=== PATIENT | male | born 1950 | race Caucasian/White ===

== ENCOUNTER 2018-08-16 15:23 | Emergency (ER) | payer MEDICARE ==
[~2018-08-16] VITALS: Ht 172.7 cm; Wt 77.1 kg
--- NOTE | 2018-08-16 15:45 | NUR ---
Dr. Cunningham at the bedside for MSE.
[2018-08-16] MEDS ORDERED: IBUPROFEN 600 MG TABLET ONE (15:57)
[2018-08-16] MEDS ORDERED: ACETAMINOPHEN ES 500 MG TABLET ONE (15:57)
[2018-08-16] MEDS ORDERED: ACETAMINOPHEN ES 500 MG TABLET PO ONE (16:00)
[2018-08-16] MEDS ORDERED: IBUPROFEN 600 MG TABLET PO ONE (16:00)
[2018-08-16 16:11] LABS: BASOPHILS # (AUTO) 0.1 K/uL (0.0-8.0); BASOPHILS % (AUTO) 1.7 % (0.0-2.0); EOSINOPHILS # (AUTO) 0.1 K/uL (0.0-0.7); EOSINOPHILS % (AUTO) 1.2 % (0.0-7.0); HEMATOCRIT 40.5 % (36.7-47.1); HEMOGLOBIN 12.9 g/dL (12.5-16.3); LYMPHOCYTES # (AUTO) 1.3 K/uL (20.0-40.0); LYMPHOCYTES % (AUTO) 17.1 % (20.5-51.5); MEAN CORPUSCULAR HEMOGLOBIN 27.1 uug (23.8-33.4); MEAN CORPUSCULAR HGB CONC 32 g/dL (32.5-36.3); MEAN CORPUSCULAR VOLUME 85.2 fL (73.0-96.2); MONOCYTES # (AUTO) 0.5 K/uL (2.0-10.0); MONOCYTES % (AUTO) 6.1 % (0.0-11.0); NEUTROPHILS # (AUTO) 5.6 K/uL (1.8-8.9); NEUTROPHILS % (AUTO) 73.9 % (38.5-71.5); PLATELET COUNT (AUTO) 238 K/uL (152-348); RED BLOOD CELL COUNT(AUTO) 4.76 MIL/uL (4.06-5.63); WHITE BLOOD COUNT (AUTO) 7.6 K/uL (3.6-10.2)
[2018-08-16 16:16] LABS: CREATININE 1.2 mg/dL (0.6-1.3); POTASSIUM 4.2 mmol/L (3.5-5.1)
[2018-08-16 16:25] LABS: BAND % (MANUAL) 3 % (0-10); EOSINOPHILS % (MANUAL) 1 % (0-8); LYMPHOCYTES % (MANUAL) 17 % (20-40); MONOCYTES % (MANUAL) 4 % (2-10); NEUTROPHILS % (MANUAL) 75 % (42-75)
[2018-08-16 16:31] LABS: *BILIRUBIN,URIN NEGATIVE (NEGATIVE); *BLOOD, URINE 2+ (NEGATIVE); *CLARITY,URINE CLEAR (CLEAR); *COLOR,URINE YELLOW (YELLOW); *KETONES,URINE NEGATIVE (NEGATIVE); *UROBILINOGEN,URINE 0.2 E.U./dl (NORMAL); LEUKOCYTE ESTERASE ,URINE NEGATIVE (NEGATIVE); NITRITE, URINE NEGATIVE (NEGATIVE); PH,URINE 8.5 (5.0-8.0); UGLUCOSE NEGATIVE (NEGATIVE)
[2018-08-16 16:31] LABS: BILIRUBIN,DIRECT 0.1 mg/dL (0.0-0.2); BILIRUBIN,TOTAL 0.5 mg/dL (0.2-1.0); TOTAL PROTEIN, SERUM 7.4 g/dL (6.4-8.2)
--- NOTE | 2018-08-16 16:37 | NUR ---
Pt returned from CT. Pt stable and nad noted upon returning to the ER.
[2018-08-16 16:44] LABS: BACTERIA,URINE NONE SEEN /HPF (NONE SEEN); SQUAMOUS EPITHELIAL CELL,UR FEW /HPF (NONE SEEN); WBC,URINE 0-3 /HPF (0-3)
--- NOTE | 2018-08-16 17:20 | NUR ---
Patient discharged to home in stable conditon. Written and verbal after care instructions given. Patient verbalizes understanding of instructions.
== END 2018-08-16 17:23 | disposition home or self-care (01) ==
LOC: ER 15:23
DX: N20.1 Calculus of ureter (principal); R31.9 Hematuria, unspecified; I10 Essential (primary) hypertension; R74.8 Abnormal levels of other serum enzymes
CPT/HCPCS: 36415; 83690; 85025; A4663; A9150

== ENCOUNTER 2018-08-23 16:32 | Emergency (ER) | payer MEDICARE ==
[~2018-08-23] VITALS: Ht 170.2 cm; Wt 77.1 kg
[2018-08-23] MEDS: LIDOCAINE HCL 1% 20 ML VIAL IJ ONE (16:45)
--- NOTE | 2018-08-23 16:45 | NUR ---
MARYANA DORAN AT BEDSIDE FOR MSE.
--- NOTE | 2018-08-23 17:06 | NUR ---
PT TAKEN TO RADIOLOGY FOR CT SCAN.
[2018-08-23 17:10] LABS: *BILIRUBIN,URIN 1+ (NEGATIVE); *BLOOD, URINE 2+ (NEGATIVE); *COLOR,URINE YELLOW (YELLOW); *KETONES,URINE TRACE (NEGATIVE); LEUKOCYTE ESTERASE ,URINE NEGATIVE (NEGATIVE); NITRITE, URINE NEGATIVE (NEGATIVE); UGLUCOSE NEGATIVE (NEGATIVE)
[2018-08-23 17:10] LABS: BASOPHILS # (AUTO) 0.1 K/uL (0.0-8.0); EOSINOPHILS % (AUTO) 0.5 % (0.0-7.0); HEMATOCRIT 33.7 % (36.7-47.1); LYMPHOCYTES # (AUTO) 0.8 K/uL (20.0-40.0); LYMPHOCYTES % (AUTO) 10.7 % (20.5-51.5); MEAN CORPUSCULAR HEMOGLOBIN 27.9 uug (23.8-33.4); MEAN CORPUSCULAR HGB CONC 33 g/dL (32.5-36.3); MEAN CORPUSCULAR VOLUME 85.2 fL (73.0-96.2); MONOCYTES # (AUTO) 0.5 K/uL (2.0-10.0); MONOCYTES % (AUTO) 6.5 % (0.0-11.0); NEUTROPHILS # (AUTO) 6.2 K/uL (1.8-8.9); NEUTROPHILS % (AUTO) 81.3 % (38.5-71.5); PLATELET COUNT (AUTO) 229 K/uL (152-348); RED BLOOD CELL COUNT(AUTO) 3.96 MIL/uL (4.06-5.63); WHITE BLOOD COUNT (AUTO) 7.6 K/uL (3.6-10.2)
[2018-08-23 17:18] LABS: CREATININE 1.8 mg/dL (0.6-1.3); POTASSIUM 3.6 mmol/L (3.5-5.1)
--- NOTE | 2018-08-23 17:19 | NUR ---
PT BACK IN ER FROM RADIOLOGY.
[2018-08-23 17:23] LABS: BILIRUBIN,DIRECT 0.1 mg/dL (0.0-0.2); BILIRUBIN,TOTAL 0.4 mg/dL (0.2-1.0); TOTAL PROTEIN, SERUM 6.7 g/dL (6.4-8.2)
[2018-08-23 17:24] LABS: *CLARITY,URINE SLIGHTLY HAZY (CLEAR)
[2018-08-23 17:26] LABS: MUCUS,URINE FEW /LPF (0-FEW); RBC,URINE 50-80 /HPF (0-3); WBC,URINE 0-3 /HPF (0-3)
[2018-08-23 17:32] LABS: BAND % (MANUAL) 3 % (0-10); LYMPHOCYTES % (MANUAL) 13 % (20-40); MONOCYTES % (MANUAL) 8 % (2-10); NEUTROPHILS % (MANUAL) 76 % (42-75)
--- NOTE | 2018-08-23 17:59 | NUR ---
PAGED DR. HUYNH, UROLOGIST, FOR DR TO DR ACEVEDO. AWAITING CALLBACK.
--- NOTE | 2018-08-23 18:02 | NUR ---
MARYANA DORAN SPEAKING W/ DR. HUYNH ON THE PHONE.
--- NOTE | 2018-08-23 18:11 | NUR ---
MARYANA DORAN AT BEDSIDE FOR PT UPDATE.
--- NOTE | 2018-08-23 18:23 | NUR ---
Patient discharged to home in stable conditon. Written and verbal after care instructions given. Patient verbalizes understanding of instructions. ALL BELONGINGS W/ PT. PT SELF-AMBULATED W/O DIFFICULTY.
[2018-08-23 18:24] VITALS: BP 131/82
== END 2018-08-23 18:25 | disposition home or self-care (01) ==
LOC: ER 16:32
DX: N13.2 Hydronephrosis with renal and ureteral calculous obstruction (principal); R31.9 Hematuria, unspecified
CPT/HCPCS: 36415; 83690; 85025; A4663

== ENCOUNTER 2018-09-22 06:19 | Emergency (ER) | payer MEDICARE ==
[~2018-09-22] VITALS: Ht 172.7 cm; Wt 74.8 kg
[2018-09-22] MEDS ORDERED: TDAP DIPH,PERTUSS,TET VAC/PF 0.5 ML DISP.SYRIN IM ONE ×2 (06:59→07:00)
--- NOTE | 2018-09-22 07:05 | NUR ---
Patient discharged to home in stable conditon. Written and verbal after care instructions given. Patient verbalizes understanding of instructions.
[2018-09-22 07:07] VITALS: BP 148/88
== END 2018-09-22 07:15 | disposition home or self-care (01) ==
LOC: ER 06:22
DX: S61.451A Open bite of right hand, initial encounter (principal); W54.0XXA Bitten by dog, initial encounter; Y93.89 Activity, other specified; Y92.89 Other specified places as the place of occurrence of the external cause; Y99.8 Other external cause status
CPT/HCPCS: 90715; A4663

== ENCOUNTER 2020-07-21 16:03 | Emergency (ER) | payer MEDICARE ==
[~2020-07-21] VITALS: Ht 172.7 cm; Wt 74.8 kg
[2020-07-21] MEDS ORDERED: TETRACAINE HCL 0.5% OPHT DROP 2 ML BOTTLE OP ONE (17:30)
[2020-07-21] MEDS ORDERED: FLUORESCEIN SODIUM 1 MG STRIP OP ONE (17:30)
[2020-07-21] MEDS ORDERED: TETRACAINE HCL 0.5% OPHT DROP 2 ML BOTTLE ONE (17:55)
[2020-07-21] MEDS ORDERED: FLUORESCEIN SODIUM 1 MG STRIP ONE (18:09)
[2020-07-21] MEDS ORDERED: CIPR5DRO EACHEYE (18:18)
--- NOTE | 2020-07-21 18:20 | NUR ---
irrigated eye with NS, first with IV line, then via pop lens. Pt then moved to room 5 for use of slit lamp.
--- NOTE | 2020-07-21 18:35 | NUR ---
Gave pt RX and d/c instructions, pt verbalized understanding.
== END 2020-07-21 18:40 | disposition home or self-care (01) ==
LOC: ER 16:03
DX: T15.91XA Foreign body on external eye, part unspecified, right eye, initial encounter (principal); X58.XXXA Exposure to other specified factors, initial encounter; Y93.89 Activity, other specified; Y92.89 Other specified places as the place of occurrence of the external cause; R03.0 Elevated blood-pressure reading, without diagnosis of hypertension
CPT/HCPCS: A4663; J7050